=== PATIENT | female | born 1965 ===

== ENCOUNTER 2017-04-03 14:09 | Emergency (ER) | payer MEDICAID ==
[2017-04-03 14:30] VITALS: RESP 18; TEMP 97.8
[2017-04-03 15:38] VITALS: BP 111/73; PULSE 62; O2SAT 98
--- NOTE | 2017-04-03 15:45 | C.PDOC ---
History Of Present Illness 52 year old female presents to the ED with complaints of fever, cough, nasal congestion, headache, runny nose, and facial pain for seven days. Patient denies chills, nausea, vomiting, sick contacts, recent travel, or abdominal pain. Time Seen by Provider: 04/03/17 14:41 Chief Complaint (Nursing): Cough, Cold, Congestion History Per: Patient History/Exam Limitations: no limitations Onset/Duration Of Symptoms: Days (7 days ) Current Symptoms Are (Timing): Still Present Location Of Pain: Headache, Other (facial pain ) Sick Contacts (Context): None Associated Symptoms: Fever, Cough. denies: Chills, Nausea, Vomiting, Diarrhea Ear Symptoms: Bilateral: None Severity: None Recent travel outside of the [place]: No Past Medical History Reviewed: Historical Data, Nursing Documentation, Vital Signs Vital Signs: Last Vital Signs Temp 97.8 F 04/03/17 14:23 Pulse 62 04/03/17 15:37 Resp 18 04/03/17 15:37 BP 111/73 04/03/17 15:37 Pulse Ox 98 04/03/17 16:59 - Medical History PMH: Depression Family History: States: Unknown Family Hx - Social History Hx Tobacco Use: No Hx Alcohol Use: No Hx Substance Use: No - Immunization History Hx Tetanus Toxoid Vaccination: No Hx Influenza Vaccination: No Hx Pneumococcal Vaccination: No Review Of Systems Constitutional: Positive for: Fever. Negative for: Chills ENT: Positive for: Nose Discharge, Other (facial pain ) Respiratory: Positive for: Cough. Negative for: Shortness of Breath Gastrointestinal: Negative for: Nausea, Vomiting, Abdominal Pain Neurological: Positive for: Headache Physical Exam - Physical Exam Appears: Non-toxic, No Acute Distress Skin: Warm, Dry Head: Atraumatic, Tenderness (frontal and maxillary sinuses ) Eye(s): bilateral: Normal Inspection, PERRL, EOMI Ear(s): Bilateral: Normal Nose: Normal, No Discharge Oral Mucosa: Moist Throat: Normal, No Erythema, No Exudate Neck: Normal ROM, Supple Cardiovascular: Rhythm Regular, No Murmur Respiratory: No Rales, No Rhonchi, No Wheezing, Other (Clear to auscultation bilaterally) ED Course And Treatment O2 Sat by Pulse Oximetry: 98 (RA) Disposition Counseled Patient/Family Regarding: Diagnosis, Need For Followup, Rx Given - Disposition Referrals: Micah Osorio MD [Staff Provider] - Disposition: HOME/ ROUTINE Disposition Time: 15:42 Condition: STABLE Additional Instructions: Follow up with your pmd / or referral provided in 2 days for re-evaluation and follow up. Rest, drink plenty of fluids, take medication as prescribed. Return to the ER at any time for any new or worsening symptoms. Prescriptions: Amoxicillin/Potassium Clav [Augmentin 500-125 Tablet] 1 each PO TID #30 tablet Fluticasone Nasal [Flonase] 1 spr NS DAILY #1 spr Guaifenesin/Pseudoephedrne HCl [Guaifenesin-Pse ER 600-60 mg] 1 each PO BID #14 [id number] Instructions: Sinusitis (ED) Forms: [employer] (Georgian), Work Excuse Print Language: AZERI - Clinical Impression Clinical Impression: Sinusitis - PA / AUTO STRIPER / Resident Statement MD/DO has reviewed & agrees with the documentation as recorded. - Scribe Statement The provider has reviewed the documentation as recorded by the Scribasael Kirkpatrick All medical record entries made by the Thomibasael were at my direction and personally dictated by me. I have reviewed the chart and agree that the record accurately reflects my personal performance of the history, physical exam, medical decision making, and the department course for this patient. I have also personally directed, reviewed, and agree with the discharge instructions and disposition.
== END 2017-04-03 15:58 | disposition home or self-care (01) ==
LOC: C.ER 14:09
DX: J32.9 Chronic sinusitis, unspecified (principal)

== ENCOUNTER 2018-02-18 12:59 | Emergency (ER) | payer MEDICAID, OTHER ==
[2018-02-18 13:16] VITALS: RESP 20
[2018-02-18] MEDS ORDERED: Sodium Chloride 0.9% 1,000 ML IV ONE (13:32)
[2018-02-18] MEDS ORDERED: Sodium Chloride 0.9% 1,000 ML ONE (13:45)
[2018-02-18 14:10] LABS: SQUAMOUS EPITHIAL 17 /hpf (0-5); URINE BACTERIA OCC (<OCC); URINE BILIRUBIN NEGATIVE (NEGATIVE); URINE BLOOD NEGATIVE (NEGATIVE); URINE CLARITY Hazy (Clear); URINE COLOR Amber (YELLOW); URINE GLUCOSE (UA) NORMAL (Normal); URINE LEUKOCYTE ESTERASE 3+ Leu/uL (Negative); URINE PROTEIN 1+ mg/dL (NEGATIVE); URINE UROBILINOGEN NORMAL mg/dL (0.2-1.0)
[2018-02-18 14:20] LABS: BASO % 0.3 % (0.0-2.0); EOS % 0.1 % (0.0-4.0); HEMOGLOBIN 12.8 g/dL (11.0-16.0); LYMPH # 1.2 K/uL (1.0-4.3); LYMPH % 19.2 % (20.0-40.0); MEAN CORPUSCULAR HGB CONC 33.7 g/dL (33.0-37.0); MEAN PLATELET VOLUME 8.4 fL (7.2-11.7); MONO # 0.3 K/uL (0.0-0.8); MONO % 4.4 % (0.0-10.0); NEUT # 4.7 K/uL (1.8-7.0); RBC 4.11 Mil/uL (3.80-5.20); RED CELL DISTRIBUTION WIDTH 11.7 % (11.5-14.5); WHITE BLOOD COUNT 6.2 K/uL (4.8-10.8)
--- NOTE | 2018-02-18 14:30 | C.PDOC ---
History Of Present Illness 52 y/o female presents to the ER complaining of vomiting and diarrhea which has been present since yesterday. Patient states that her symptoms may be due to her lunch from yesterday. Patient reports that she has associated epigastric abdominal pain. Patient also reports this morning she feels weak and has a headache. Denies having fever, chills, sick contacts, and recent travel. Time Seen by Provider: 02/18/18 13:22 Chief Complaint (Nursing): Headache History Per: Patient History/Exam Limitations: no limitations Onset/Duration Of Symptoms: Days Current Symptoms Are (Timing): Still Present Severity: Moderate Past Medical History Reviewed: Historical Data, Nursing Documentation, Vital Signs Vital Signs: Last Vital Signs Temp 97.9 F 02/18/18 15:29 Pulse 78 02/18/18 15:29 Resp 20 02/18/18 15:29 BP 122/78 02/18/18 15:29 Pulse Ox 99 02/18/18 15:29 - Medical History PMH: Depression Other Surgeries: Hx of surgeries Family History: States: No Known Family Hx - Social History Hx Tobacco Use: No Hx Alcohol Use: No Hx Substance Use: No - Immunization History Hx Tetanus Toxoid Vaccination: No Hx Influenza Vaccination: No Hx Pneumococcal Vaccination: No Review Of Systems Constitutional: Positive for: Malaise. Negative for: Fever, Chills, Weakness, Weight loss Eyes: Negative for: Vision Change Cardiovascular: Negative for: Chest Pain, Palpitations Respiratory: Negative for: Cough, Shortness of Breath Gastrointestinal: Positive for: Vomiting, Abdominal Pain, Diarrhea Genitourinary: Negative for: Dysuria, Hematuria Skin: Negative for: Rash Neurological: Positive for: Headache Physical Exam - Physical Exam Appears: Non-toxic, No Acute Distress Skin: Normal Color, Warm, Dry Head: Atraumatic, Normacephalic Eye(s): bilateral: Normal Inspection, PERRL, EOMI Nose: Normal Oral Mucosa: Moist Neck: Normal ROM, Supple Chest: Symmetrical Cardiovascular: Rhythm Regular Respiratory: Normal Breath Sounds, No Rales, No Rhonchi, No Wheezing Gastrointestinal/Abdominal: Normal Exam, Soft, No Tenderness, No Guarding, No Rebound Extremity: Bilateral: Atraumatic, Normal Color And Temperature, Normal ROM Neurological/Psych: Oriented x3, Normal Speech Gait: Steady ED Course And Treatment - Laboratory Results Result Diagrams: 02/18/18 14:17 09/05/18 14:17 Lab Interpretation: No Acute Changes O2 Sat by Pulse Oximetry: 100 (RA) Pulse Ox Interpretation: Normal Medical Decision Making Medical Decision Making: Impression: Vomiting, Diarrhea Plan: * Labs * UA * HCG, Qual. * Pepcid IV * Reglan IV * IV Fluids RE-evaluation. Discussed results with patient, and copy of lab report was provided. On re-examination, patient is resting comfortably in no acute distress. Patient reports improvement of symptoms. Abdomen was soft and nontender, she was able to tolerate oral fluids in ED. No signs of dehydration. Patient feels comfortable going home and will be discharged. Patient given follow up instructions. Instructed to return to ER if symptoms worsen or new symptoms arise. Disposition Counseled Patient/Family Regarding: Studies Performed, Diagnosis, Need For Followup - Disposition Disposition: HOME/ ROUTINE Disposition Time: 15:16 Condition: GOOD Additional Instructions: Evelia lquidos para prevenir la deshidratacin. Pruebe latanya dieta baja en grasas con un aumento de lquidos, milind bebidas deportivas, gelatina. Pruebe sopa, arroz, chirinos, galletas saladas, cereales y pltanos para ayudar con la diarrea. Instructions: Gastroenteritis (DC) Print Language: SWEDISH - POA Present On Arrival: None - Clinical Impression Clinical Impression: Gastroenteritis - PA / PIECE DYER / Resident Statement MD/DO has reviewed & agrees with the documentation as recorded. - Scribe Statement The provider has reviewed the documentation as recorded by the Thomibasael Moreno Provider Attestation All medical record entries made by the Scribe were at my direction and personally dictated by me. I have reviewed the chart and agree that the record accurately reflects my personal performance of the history, physical exam, medical decision making, and the department course for this patient. I have also personally directed, reviewed, and agree with the discharge instructions and disposition.
[2018-02-18 14:32] LABS: ALB/GLOB RATIO 1.2 (1.0-2.1); ALBUMIN 4.3 g/dL (3.5-5.0); BLOOD UREA NITROGEN 21 mg/dL (7-17); CALCIUM 8.7 mg/dl (8.6-10.4); GFR NON-AFRICAN AMERICAN > 60; LIPASE 57 U/L (23-300)
[2018-02-18 14:33] LABS: ALT/SGPT 25 U/L (9-52); AST/SGOT 30 U/L (14-36)
[2018-02-18 15:30] VITALS: BP 122/78; PULSE 78; TEMP 97.9
[2018-02-18 17:11] VITALS: O2SAT 100
== END 2018-02-18 15:29 | disposition home or self-care (01) ==
LOC: C.ER 12:59
DX: K52.9 Noninfective gastroenteritis and colitis, unspecified (principal)
CPT/HCPCS: 80053; 81001; 83690; 84703; 85025; 96361; 96374; 96375; 99285; J2765; J7030

== ENCOUNTER 2018-06-13 13:49 | Emergency (ER) | payer MEDICAID ==
[2018-06-13 14:07] VITALS: BP 120/83; PULSE 80; RESP 18; TEMP 98.6; O2SAT 99
--- NOTE | 2018-06-13 14:16 | C.PDOC ---
History Of Present Illness 53 year old female with no prior medical history presents to the ED for evaluation of sore throat, body aches, non-productive cough, and subjective fever for 3 days. Denies nausea, vomiting, diarrhea, recent travel, and any other associated symptoms. Time Seen by Provider: 06/13/18 14:01 Chief Complaint (Nursing): Flu-like Symptoms History Per: Patient History/Exam Limitations: no limitations Onset/Duration Of Symptoms: Days (x3) Current Symptoms Are (Timing): Still Present Recent travel outside of the [place]: No Past Medical History Reviewed: Historical Data, Nursing Documentation, Vital Signs Vital Signs: Last Vital Signs Temp 98.6 F 06/13/18 14:05 Pulse 80 06/13/18 14:05 Resp 18 06/13/18 14:05 BP 120/83 06/13/18 14:05 Pulse Ox 99 06/13/18 14:05 - Medical History PMH: Depression Denies: Diabetes, Hepatitis, HIV, HTN, Seizures, Sexually Transmitted Disease Family History: States: Unknown Family Hx - Social History Hx Tobacco Use: No Hx Alcohol Use: No Hx Substance Use: No - Immunization History Hx Tetanus Toxoid Vaccination: No Hx Influenza Vaccination: No Hx Pneumococcal Vaccination: No Review Of Systems Except As Marked, All Systems Reviewed And Found Negative. Constitutional: Positive for: Fever (subjective. ), Other (body aches. ) ENT: Positive for: Throat Pain (sore. ) Respiratory: Positive for: Cough (non-productive. ) Physical Exam - Physical Exam Appears: Non-toxic, No Acute Distress Skin: Normal Color, Warm, Dry Head: Atraumatic, Normacephalic Eye(s): bilateral: Normal Inspection, PERRL, EOMI Ear(s): Bilateral: Normal Nose: Normal Oral Mucosa: Moist Throat: Erythema (tonsillar erythema, hypertrophy.), Exudate (scant.) Neck: Supple Chest: Symmetrical Cardiovascular: Rhythm Regular, No Murmur Respiratory: Normal Breath Sounds, No Rales, No Rhonchi, No Wheezing Gastrointestinal/Abdominal: Normal Exam, Soft, No Tenderness Extremity: Bilateral: Atraumatic, Normal Color And Temperature, Normal ROM Neurological/Psych: Oriented x3, Normal Speech ED Course And Treatment O2 Sat by Pulse Oximetry: 99 (RA) Pulse Ox Interpretation: Normal Medical Decision Making Medical Decision Making: Assessment: pharyngitis Plan: -Motrin -Azithromycin. Progress/Update: Patient stable for discharge home. Patient advised to follow up with medical clinic in 2 days. Prescribed Naproxen, Tessalon, and Azithromycin. Disposition Counseled Patient/Family Regarding: Diagnosis, Need For Followup, Rx Given - Disposition Referrals: [facility] [Outside] Disposition: HOME/ ROUTINE Disposition Time: 14:14 Condition: STABLE Additional Instructions: follow up with medical clinic within 2 days call to make an appointment take medications as prescribed return to ER if symptoms worsens or progress Prescriptions: Azithromycin [Zithromax] 250 mg PO DAILY #4 tab Benzonatate [Tessalon Perles] 100 mg PO BID PRN #14 tab PRN Reason: Cough Naproxen [Naprosyn] 500 mg PO BID PRN #16 tab PRN Reason: Pain, Moderate (4-7) Instructions: Sore Throat, Adult (DC) Forms: Gen Discharge Inst Macanese, [employer] (Macanese) Print Language: ARMENIAN - Clinical Impression Clinical Impression: Pharyngitis - Scribe Statement The provider has reviewed the documentation as recorded by the Scribe (Ashleigh Aguayo) Provider Attestation: All medical record entries made by the Scribe were at my direction and personally dictated by me. I have reviewed the chart and agree that the record accurately reflects my personal performance of the history, physical exam, medical decision making, and the department course for this patient. I have also personally directed, reviewed, and agree with the discharge instructions and disposition.
== END 2018-06-13 15:17 | disposition home or self-care (01) ==
LOC: C.ER 13:49
DX: J02.9 Acute pharyngitis, unspecified (principal)